=== PATIENT | male | born 1970 | race Caucasian/White ===

== ENCOUNTER 2017-05-15 05:42 | Emergency (ER) | payer BC ==
[~2017-05-15] VITALS: Ht 185.4 cm; Wt 93.3 kg
[2017-05-15 08:52] LABS: HEMATOCRIT 44.3 % (38.0-50.0); MCH 31.3 PG (29.0-34.0); MCV 89.3 FL (86-99); MEAN PLAT.VOLUME 10.3 uM^3 (9.0-12.4); PLATELET COUNT 253 K/uL (156-360); RBC DIS.WIDTH-CV 12.8 % (11.8-14.6); RBC DIS.WIDTH-SD 42.1 % (39-53); RED BLOOD COUNT 4.96 M/uL (4.00-5.50); WHITE BLOOD COUNT 7.2 K/uL (4.1-10.2)
[2017-05-15 09:00] LABS: D-DIMER ELISA < 150.00 ng/mLDDU (<230)
[2017-05-15 09:03] LABS: CHLORIDE 107 mEq/L (99-109); POTASSIUM 4.1 mEq/L (3.7-5.4); SODIUM 142 mEq/L (136-147)
[2017-05-15 09:05] LABS: GLUCOSE 97 mg/dL (70-99)
[2017-05-15 09:07] LABS: ANION GAP 8 MEQ/L (2-14)
[2017-05-15 09:09] LABS: GFR ESTIMATE (CALCULATED) > 59 mL/min/ (58.99-99999)
[2017-05-15 09:10] LABS: UREA NITROGEN (BUN) 15 mg/dL (9-23)
[2017-05-15 09:13] LABS: TROP-I INTERPRETATION NEGATIVE; TROPONIN-I < 0.01 ng/mL (0.0-0.30)
[2017-05-15 09:28] VITALS: BP 122/70
== END 2017-05-15 09:29 | disposition home or self-care (01) ==
LOC: EME 05:42
PROVIDERS: Physician Assistant Medical
DX: R07.89 Other chest pain (principal); J45.909 Unspecified asthma, uncomplicated
CPT/HCPCS: 71010; 80048; 84484; 85027; 85379; 93005; 99281; 99284